=== PATIENT | male | born 1985 | race Caucasian/White ===

== ENCOUNTER → 2018-04-13 14:24 | Outpatient (CLI) | payer OTHER, SELFPAY ==
--- NOTE | 2018-04-13 | DI.CT.S_ITS ---
PROCEDURE: CT ABDOMEN PELVIS WO/W CON INDICATIONS: FLANK PAIN TECHNIQUE: After the administration of oral contrast, 5 mm thick sections acquired from the diaphragms to the iliac crests. After the administration of intravenous contrast, 5 mm thick sections acquired from the diaphragms to the symphysis. 5 mm thick coronal and sagittal reformats were acquired. For radiation dose reduction, the following was used: automated exposure control, adjustment of mA and/or kV according to patient size. COMPARISON: [facility], CT, ABD/PELVIS W/CON (PNL), 03/15/2013, 13:34. FINDINGS: Image quality: Diagnostic. ABDOMEN: Genitourinary structures: The kidneys are normal in size. No focal renal lesions are evident. There is no hydronephrosis or hydroureter. Symmetric enhancement of both kidneys is present. There may be an extrarenal pelvis on the right. Mild tortuosity of the proximal left ureter is incidentally noted. No ureteral calculi are identified. The right ureter is slightly larger than the left. There is mild prominence of the right vesicoureteral junction compared to the left. No calculi are evident. No bladder calculi are seen. Mild bladder wall thickening appears to be present. The prostate is not enlarged. The patient has had prior vasectomy. The testicles do not appear to be enlarged, but are not adequately evaluated. Lung bases: Lung bases are clear. Heart size is normal. Other solid organs: The liver, adrenals, spleen, and pancreas are within normal limits. The gallbladder is decompressed and not well evaluated. Bowel and peritoneum: There is a small hiatal hernia. Otherwise, the stomach and duodenum are unremarkable. Small bowel loops are nondilated. The appendix is well-visualized and normal without surrounding inflammation. Moderate residual stool is identified throughout the colon. There is no free fluid, loculated fluid collection or free air. Nodes and vessels: No retroperitoneal or mesenteric adenopathy by size criteria. Aorta and inferior vena are normal in caliber. Miscellaneous: No ventral hernias. PELVIS: Soft tissues: No inguinal hernias or adenopathy. No free fluid or loculated fluid collection is identified Bones: No suspicious bony lesions. No vertebral body compression fractures. IMPRESSION: 1. No obstructing or nonobstructing renal or ureteral calculi are evident. 2. Mild thickening of the wall of the urinary bladder may be related to cystitis. Please correlate clinically. 3. Slight asymmetric prominence of the right ureter with associated soft tissue prominence of the vesicoureteral junction on the right is nonspecific and may be within normal limits for this patient. The possibility of either a radiolucent calculus at the vesicoureteral junction or more focally prominent inflammation of the vesicoureteral junction on the right from an infectious process is difficult to exclude and clinical correlation is recommended. 4. Normal appendix. 5. Mild colonic constipation. Dictated by: Joe Nieves M.D. on 04/13/2018 at 15:37 Approved by: Joe Nieves M.D. on 04/13/2018 at 15:46
== END ==
PROVIDERS: Visit Provider Family Medicine
DX: R10.9 Unspecified abdominal pain (principal); K59.00 Constipation, unspecified; N50.82 Scrotal pain; N50.89 Other specified disorders of the male genital organs
CPT/HCPCS: 74178; Q9967

== ENCOUNTER → 2018-04-14 14:18 | Outpatient (CLI) | payer OTHER, SELFPAY ==
--- NOTE | 2018-04-14 | DI.US.S_ITS ---
PROCEDURE: US SCROTUM INDICATIONS: TORSION TECHNIQUE: Real-time scanning was performed of the scrotum and testicles, with image documentation. Color and pulse Doppler interrogation was performed of both testicles. COMPARISON: None. FINDINGS: Right: Testicle is normal in size at 4.4 x 2.8 x 3.3 cm, and homogenous in echotexture. Epididymis is normal in overall size and morphology. Increased vascularity within right epididymis is seen. No hydrocele or varicoceles. Overlying scrotal skin is normal in thickness. Left: Testicle is normal in size at 4.4 x 2.6 x 2.9 cm, and homogeneous in echotexture. Epididymis is normal in overall size and morphology. No hydrocele or varicoceles. Overlying scrotal skin is normal in thickness. Doppler: Color and pulse Doppler demonstrate normal and symmetric arterial flow in both testicles. Normal resistive indexes seen in bilateral testes. IMPRESSION: 1. Normal appearing bilateral testes. No evidence of testicular torsion. No discrete testicular lesion. 2. Increased vascularity within the right epididymis suggestive of epididymitis. No gross abnormality is seen in left epididymis. Dictated by: Familia Fatima M.D. on 04/14/2018 at 16:06 Approved by: Familia Fatima M.D. on 04/14/2018 at 16:14
== END ==
PROVIDERS: PCP Family Medicine; Visit Provider Family Medicine
DX: N44.00 Torsion of testis, unspecified (principal)
CPT/HCPCS: 76870

== ENCOUNTER 2019-12-01 15:06 | Emergency (ER) | payer OTHER, SELFPAY ==
[2019-12-01 15:17] VITALS: BP 132/65; PULSE 75; RESP 17; TEMP 36.8; O2SAT 98; BMI 28.7
[2019-12-01] MEDS: PROPARACAINE 0.5% OPHTH SOL 1 DROPS EYE-RIGHT (15:46)
--- NOTE | 2019-12-01 16:41 | ED_ITS ---
HPI - Eye Problem <SHELDON Carranza - Last Filed: 12/01/19 16:54> General Chief complaint: Eye Problems Stated complaint: Something in his right eye Time Seen by Provider: 12/01/19 15:45 Source: patient Mode of arrival: Ambulatory Limitations: no limitations History of Present Illness HPI Narrative: This is a 34-year-old male who presents to ED with right eye discomfort and foreign body sensation. Patient reports he was wearing a hat and fell something dropped from a hat into right eye. His grandmother saw a small debris for few seconds near the right eye before. Patient states he rubbed right eye to remove the debris. He has been having eye pain last couple of hours and had irrigate his eye with water with hose, shower but without much relief. Patient denies changes in vision. Last tetanus immunization possibly updated in 4 years. Patient reports pain is mostly in 1 and 3 o'clock in right eye. Patient offered Tylenol and Motrin while in ED which he declined. Patient does not wear contact lenses or glasses. Related Data Allergies Allergy/AdvReac Type Severity Reaction Status Date / Time No Known Drug Allergies Allergy Verified 12/01/19 15:20 Review of Systems <SHELDON Carranza - Last Filed: 12/01/19 16:54> Review of Systems Narrative: General: Denies fever, chills, fatigue, malaise, sweats. HEENT: See HPI Respiratory: Denies dyspnea, cough, wheezing, hemoptysis, sputum. Cardiovascular: Denies chest pain, palpitations, orthopnea, edema. Gastrointestinal: Denies nausea, vomiting, abdominal pain, diarrhea, constipation, melena. : Denies dysuria, frequency, incontinence, hematuria, urinary retention. Musculoskeletal: Denies weakness, joint pain or bony pain. Skin: Denies rash, skin lesions, or other. Neurologic: Denies weakness, headache, numbness, change in speech, confusion, seizures, incoordination. Psychiatric: No concerning psychosocial issues. 12-point review of systems is negative except for those stated above. Patient History <SHELDON Carranza - Last Filed: 12/01/19 16:54> Medical History No significant past medical history (Acute) Surgical History No pertinent past surgical history (Acute) Social History Smoking Status: Never smoker Smoking Status: Never smoker alcohol intake frequency: holidays/special occasions only Substance Use Type: does not use Exam <SHELDON Carranza - Last Filed: 12/01/19 16:54> Narrative Exam Narrative: General appearance: well developed, well nourished, in no acute distress. Head: normocephalic, atraumatic, no scalp lesions, non-tender. ENT: Hearing grossly intact. Nose without bleeding, purulent discharge. Facial sinuses nontender to palpate. Mucous membrane moist, no mucosal lesion. Throat without erythema, tonsillar hypertrophy or exudate. Uvula in midline, airway patent. Neck/Thyroid: neck supple, full range of motion, no visible masses or meningeal signs. No JVD, non-tender without lymphadenopathy. Skin: no suspicious rashes, lesions over visible areas. Warm and dry and appropriate color for ethnicity. Heart: no clubbing, no cyanosis, no edema. S1 and S2 normal. RRR w/o murmurs, clicks, or bruits. Lungs: Breathing even and unlabored. No stridor. No accessory muscles used. Able to speak in full sentences. Chest: normal shape and expansion. Abdomen: non-obese, non-distended. Neurologic: alert and oriented. Cognitive exam, W[employer] and PNS grossly intact on informal exam. Psych: good eye contact, normal affect. Initial Vital Signs Initial Vital Signs: Vital Signs Temperature 98.2 F 12/01/19 15:17 Pulse Rate 75 12/01/19 15:17 Respiratory Rate 17 12/01/19 15:17 Blood Pressure 132/65 12/01/19 15:17 Pulse Oximetry 98 12/01/19 15:17 Eyes Visual An: normal visual an by confrontation Alignment and Position: alignment normal Periorbital: periorbital findings normal Eyelids: eyelid abnormality right upper eyelid swelling Conjunctivae: conjunctival abnormality right conjunctival injection; without discharge Sclera: sclerae normal (No foreign body, hemorrhage, exudate appreciated.) Cornea: corneas abnormal on the right fluorescein used; without ulcerations and fluorescein used (Increased fluorescein reuptake at 1 and 5 o clock. ) Pupils: PERRL and normal by confrontation EOM: EOM intact bilaterally Direct ophthalmoscopy: normal light reflex <Jay Koo MD - Last Filed: 12/02/19 07:48> Initial Vital Signs Initial Vital Signs: Vital Signs Temperature 98.2 F 12/01/19 15:17 Pulse Rate 75 12/01/19 15:17 Respiratory Rate 17 12/01/19 15:17 Blood Pressure 132/65 12/01/19 15:17 Pulse Oximetry 98 12/01/19 15:17 Scores <[facility] - Last Filed: 12/01/19 16:54> GCS [place] coma scale eye opening: Spontaneous [place] coma scale verbal response: Orientated [place] coma scale motor response: Obey commands Nathanael coma scale total score: 15 Course <[facility] - Last Filed: 12/01/19 16:54> Orders Ordered: Discontinued Medications Erythromycin (Erythromycin Ophth Oint) 1 applic EYE-RIGHT NOW ONE Stop: 12/01/19 16:41 Last Admin: 12/01/19 16:46 Dose: 1 applic Documented by: MMCFARL Fluorescein Sodium (Ful-Renetta) 1 mg EYE-RIGHT NOW ONE Stop: 12/01/19 15:55 Last Admin: 12/01/19 16:46 Dose: 1 mg Documented by: MMCFARL Proparacaine HCl (Parcaine 0.5% Ophth Gina) 1 drops EYE-RIGHT NOW ONE Stop: 12/01/19 15:43 Last Admin: 12/01/19 15:46 Dose: 1 drop Documented by: KRISTAN Vital Signs Vital signs: Vital Signs - 8 hr 12/01/19 15:17 Temperature 98.2 F Pulse Rate 75 Respiratory Rate 17 Blood Pressure 132/65 Pulse Oximetry 98 <Jay Koo MD - Last Filed: 12/02/19 07:48> Orders Ordered: Discontinued Medications Erythromycin (Erythromycin Ophth Oint) 1 applic EYE-RIGHT NOW ONE Stop: 12/01/19 16:41 Last Admin: 12/01/19 16:46 Dose: 1 applic Documented by: MMCFARL Fluorescein Sodium (Ful-Renetta) 1 mg EYE-RIGHT NOW ONE Stop: 12/01/19 15:55 Last Admin: 12/01/19 16:46 Dose: 1 mg Documented by: MMCFARL Proparacaine HCl (Parcaine 0.5% Ophth Gina) 1 drops EYE-RIGHT NOW ONE Stop: 12/01/19 15:43 Last Admin: 12/01/19 15:46 Dose: 1 drop Documented by: KRISTAN Vital Signs Vital signs: Vital Signs - 8 hr 12/01/19 15:17 Temperature 98.2 F Pulse Rate 75 Respiratory Rate 17 Blood Pressure 132/65 Pulse Oximetry 98 [facility] - Eye Problem <Isaiah SHELDON Johnson - Last Filed: 12/01/19 16:54> Differential Diagnosis Differential diagnosis: Likely corneal abrasion, corneal ulcer and other (Foreign body) Medical Records Attestation: I reviewed the patient's medical records. [facility] Narrative Medical decision making narrative: Unable locate foreign body in right eye, below upper or lower lid. Mild increase in fluorescein uptake at 1 and 5 o'clock. Affected eye has been irrigated with normal saline and treated with erythromycin ointment and discharged to home with the rest of the medication. Advised to use erythromycin 1/2 inch 4 times a day and to follow-up with ophthalmology in a couple of days. Visual acuity bilaterally 20/25. Patient does not use contact lens. Return precautions were discussed with patient and patient verbalized the understanding and in agreement with the treatment plan. IOP 12 per tonometry. Discharge Plan Departure Patient Disposition: Home Clinical Impression: Corneal abrasion Qualifiers: Encounter type: initial encounter Laterality: right Qualified Code(s): S05.01XA - Injury of conjunctiva and corneal abrasion without foreign body, right eye, initial encounter Discharge Date/Time: 12/01/19 16:45 Instructions: DI for Corneal Abrasion Activity Restrictions/Additional Instructions: You have been diagnosed with [right cornea abrasion and foreign body sensation. Unable to locate foreign body. You were treated with erythromycin antibiotic ointment for eye. Affected eye has been irrigated in ED.]. What to do: *Take your medications as directed. Please use erythromycin eye ointment half an inch on affected eye up to 4 times a day. You can take [id number] Tylenol and or Motrin as needed for discomfort. Cool pack on affected eye for discomfort. *Follow up with your primary care provider in 2-3 days, call for an appointment. Please follow-up with ophthalmology. Let them know you were seen in the ED and that we asked you to be seen in follow up. *Return to ED if you have any new, worsening, or concerning symptoms, such as [decreased vision, pain, breathing difficulty, unable to tolerate fluids, or any acute concerns]. Referrals: Xavi Allen MD [Physician] - Claudy Bowman MD [Primary Care Provider] -
[2019-12-01] MEDS: ERYTHROMYCIN OPHTH 1 GM OINT 1 APPLIC EYE-RIGHT (16:46)
[2019-12-01] MEDS: FLUORESCEIN 1 MG STRIP EYE-RIGHT (16:46)
== END 2019-12-01 16:45 | disposition home or self-care (01) ==
PROVIDERS: Emergency Provider Nurse Practitioner Family; PCP Family Medicine
DX: S05.01XA Injury of conjunctiva and corneal abrasion without foreign body, right eye, initial encounter (principal)
CPT/HCPCS: 99282

== ENCOUNTER → 2020-02-29 09:20 | Outpatient (CLI) | payer OTHER, SELFPAY ==
--- NOTE | 2020-02-29 | DI.RAD.S_ITS ---
PROCEDURE: XR FOOT LT MIN 3V INDICATIONS: LT FOOT PAIN POST INJURY TECHNIQUE: 3 views of the foot were acquired. COMPARISON: None. FINDINGS: Bones: No fracture. Mild inter phalangeal joint degeneration and mild 1st MTP osteoarthritis. Prominent spurring at the tibiotalar joint, and a chronic corticated appearing ossicle projects adjacent to the medial malleolus. Soft tissues: No tibiotalar joint effusion. Achilles tendon appears normal. IMPRESSION: No fracture. If the patient's symptoms do not improve recommend followup radiographs in 10 days to assess for healing sclerosis/occult injury. Chronic degenerative changes as above Dictated by: Mook Baxter M.D. on 02/29/2020 at 11:13 Approved by: Mook Baxter M.D. on 02/29/2020 at 11:15
== END ==
PROVIDERS: PCP Family Medicine; Referring Provider Family Medicine; Visit Provider Family Medicine
DX: S99.922A Unspecified injury of left foot, initial encounter (principal); M79.672 Pain in left foot; M19.072 Primary osteoarthritis, left ankle and foot; X58.XXXA Exposure to other specified factors, initial encounter
CPT/HCPCS: 73630

== ENCOUNTER 2020-10-30 15:29 | Emergency (ER) | payer OTHER, SELFPAY ==
[2020-10-30 15:48] VITALS: BP 136/73; PULSE 84; RESP 18; TEMP 36.9; O2SAT 99; BMI 28.7
--- NOTE | 2020-10-30 15:55 | DI.RAD.S_ITS ---
PROCEDURE: XR HAND LT MIN 3V INDICATIONS: smashed hand between two rocks TECHNIQUE: 3 views of the hand(s) acquired. COMPARISON: [facility], , HAND 3V RIGHT, 01/09/2010, 13:43. FINDINGS: Bones: No fractures or dislocations. Carpal bones are normally aligned. No suspicious bony lesions. Soft tissues: No suspicious soft tissue calcifications. IMPRESSION: Normal left hand Dictated by: Bill Zuniga M.D. on 10/30/2020 at 16:12 Approved by: Bill Zuniga M.D. on 10/30/2020 at 16:13
--- NOTE | 2020-10-30 18:03 | ED_ITS ---
HPI - Extremity Injury (Upper) General Chief Complaint: Extremity Injury, Upper Stated Complaint: smashed left hand Time Seen by Provider: 10/30/20 18:03 Source: patient Mode of arrival: Ambulatory Limitations: no limitations History of Present Illness HPI narrative: 34-year-old gentleman with no significant medical history was moving rocks in his yd thought he had positioned his hands appropriately however as the rocks were shifted his left hand was caught between 2 large rocks and crushed through the midportion of his hand. It immediately went numb in an ulnar distribution. He had increased swelling and did have the for-thought to remove his rings as soon as possible. There is no significant abrasions or obvious hematomas. He comes to the ER for further evaluation Related Data Allergies Allergy/AdvReac Type Severity Reaction Status Date / Time shrimp Allergy Severe Anaphylaxis Verified 10/30/20 15:48 Review of Systems Review of Systems Narrative: Remainder of complete review of systems is otherwise unremarkable except for that included in the HPI. Patient History Medical History No significant past medical history Surgical History No pertinent past surgical history Social History Smoking Status: Never smoker Smoking Status: Never smoker alcohol intake frequency: holidays/special occasions only Substance Use Type: does not use Exam Narrative Exam Narrative: General: Alert appropriate in no acute distress Respiratory: Able to speak in full sentences, no obvious respiratory distress Skin: No obvious rashes, warm and dry Neurologic: Grossly intact no obvious asymmetries or abnormalities Psych: appropriate insight and affect, cooperative Extremity: Left hand is examined. The hand itself is swollen without signif icant abrasion or contusion. He is tender on the thenar eminence and with closing his fist however does have full range of motion at the wrist and the fingers with full sensation to all fingers at this point. Initial Vital Signs Initial Vital Signs: Vital Signs Temperature 98.5 F 10/30/20 15:48 Pulse Rate 84 10/30/20 15:48 Respiratory Rate 18 10/30/20 15:48 Blood Pressure 136/73 10/30/20 15:48 Pulse Oximetry 99 10/30/20 15:48 Course Orders Ordered: ED Orders 10/30/20 15:55 XR hand LT min 3V Stat Vital Signs Vital signs: Vital Signs - 8 hr 10/30/20 18:50 Pulse Rate 62 Respiratory Rate 18 Blood Pressure 131/88 Pulse Oximetry 100 [facility] - Extremity Injury (Upper) Imaging Data X-ray hand: Radiologist's Impression: FINDINGS: Bones: No fractures or dislocations. Carpal bones are normally aligned. No suspicious bony lesions. Soft tissues: No suspicious soft tissue calcifications. IMPRESSION: Normal left hand Dictated by: Bill Zuniga M.D. on 10/30/2020 at 16:12 [facility] Narrative Medical decision making narrative: 34-year-old gentleman with a significant hand contusion without bony injury or traumatic crush injury. Reviewed anticipated course of resolution as well as expected swelling. Questions were answered and patient is safe for home discharge Discharge Plan Departure Patient Disposition: Home Clinical Impression: Contusion of hand Qualifiers: Encounter type: initial encounter Laterality: left Qualified Code(s): S60.222A - Contusion of left hand, initial encounter Instructions: DI for Contusion Activity Restrictions/Additional Instructions: Thank you for coming in today Your injury sounds like it is going to be painful for another day or two. Fortunately you did not break any bones. Do expect more swelling. It is okay to use the hand as you normally would and allow pain to restrict your activity (if it hurts, do not do it). Using 400 mg of ibuprofen (2 [id number] pills) and 1 Tylenol every 6 hours can be very helpful in controlling pain. If you notice worsening symptoms, developed persistent numbness please feel free to return to the ER for further evaluation. Referrals: Claudy Bowman MD [Primary Care Provider] -
[2020-10-30 18:50] VITALS: BP 131/88; PULSE 62; RESP 18; O2SAT 100
== END 2020-10-30 18:52 | disposition home or self-care (01) ==
PROVIDERS: Emergency Provider Emergency Medicine; PCP Family Medicine
DX: S60.222A Contusion of left hand, initial encounter (principal); W23.0XXA Caught, crushed, jammed, or pinched between moving objects, initial encounter
CPT/HCPCS: 73130; 99283

== ENCOUNTER → 2022-02-05 12:29 | Outpatient (CLI) | payer OTHER, SELFPAY ==
--- NOTE | 2022-02-05 | DI.CT.S_ITS ---
PROCEDURE: CT SINUS SCREEN WO CON INDICATIONS: Chronic pansinusitis TECHNIQUE: Noncontrast 3.0 mm axial images acquired from the frontal sinuses to the mid-sella, with coronal and sagittal reformats. For radiation dose reduction, the following was used: automated exposure control, adjustment of mA and/or kV according to patient size. COMPARISON: None. FINDINGS: Image quality: Excellent. Maxillary Sinuses: No bony remodeling or destruction. Sinuses are clear. Ethmoid Air Cells: No bony remodeling or destruction. Sinuses are clear. Sphenoid Sinuses: No bony remodeling or destruction. Sinuses are clear. Frontal Sinuses: No bony remodeling or destruction. Sinuses are clear. Ostiomeatal Complexes: Ostiomeatal complexes are patent. No Meagan cells. Miscellaneous: Moderate nasal septal deviation to the left with spurring which creates a mucosal contact point (series 4, image 23) with the inferior nasal turbinate mucosa. No jack bullosa. IMPRESSION: No findings of acute or chronic sinusitis. Moderate nasal septal deviation and spurring. Dictated by: Lewis Leger M.D. on 02/05/2022 at 13:36 Approved by: Lewis Leger M.D. on 02/05/2022 at 13:38
== END ==
PROVIDERS: PCP Family Medicine; Referring Provider Otolaryngology; Visit Provider Otolaryngology
DX: J32.4 Chronic pansinusitis (principal); J34.2 Deviated nasal septum; R43.8 Other disturbances of smell and taste
CPT/HCPCS: 70486

== ENCOUNTER → 2022-06-08 13:25 | Outpatient (ROUT) | payer OTHER, SELFPAY ==
[2022-06-08 14:56] LABS: COVID-19 CEPHEID PCR (VTM/NP) Negative (Negative)
== END ==
PROVIDERS: Visit Provider Otolaryngology
DX: Z20.822 Contact with and (suspected) exposure to COVID-19 (principal)
CPT/HCPCS: U0003; U0005

== ENCOUNTER 2022-06-10 10:14 | Day surgery (SDC) | payer OTHER, SELFPAY ==
[2022-06-09 11:43] VITALS: BMI 29.2
[2022-06-10 10:50] VITALS: BP 130/85; PULSE 75; RESP 16; TEMP 36.6; O2SAT 99; BMI 29.2
[2022-06-10] MEDS: LACTATED RINGERS 1,000 ML 42 ML IV ×2 (11:07→13:09)
[2022-06-10] MEDS: OXYMETAZOLINE NASAL SPRAY 15 ML 2 SPRAYS NASAL (11:12)
--- NOTE | 2022-06-10 11:24 | PM.PREOP ---
Pre-operative Note Interval Note History & Physical reviewed/Exam performed by Physician: Yes Changes to H&P: No
--- NOTE | 2022-06-10 11:24 | PM.HP.1 ---
History of Present Illness History of Present Illness Time Patient Seen: 11:24 Chief complaint: SEPTOPLASTY & TURBINATE REDUCTION Narrative: 36-year-old male last seen in clinic 03/25/2022 with known right greater than left nasal obstruction, septal deviation, and turbinate hypertrophy, presents for septoplasty and turbinate reduction under general anesthesia. No interval health changes although the budesonide nasal irrigations seem to plug his ear. Patient History Medical History Allergic rhinitis Anxiety Hx of reduction of closed fracture Hyposmia Nasal obstruction Nasal septal deviation Nasal turbinate hypertrophy Tinnitus of both ears Surgical History History of surgery on wrist (2008) Hx of hernia repair (2005) Hx of knee surgery (2006) Family & Social History Social History: household members spouse Tobacco & Substance use: Smoking Status Never smoker alcohol intake current alcohol intake frequency holiday/special occasion Substance Use Type does not use Meds Home Medications and Allergies Home Medications Medication Instructions Recorded Confirmed Type sertraline 100 mg tablet (Zoloft) 100 mg PO 06/09/22 History Allergies Allergy/AdvReac Type Severity Reaction Status Date / Time shrimp Allergy Severe Anaphylaxis Verified 06/10/22 10:40 Review of Systems Review of Systems Narrative: Negative except as listed in the HPI Exam Vital Signs (past 8 hours): - 06/10/22 10:50 Temperature 97.9 F Pulse Rate 75 Respiratory Rate 16 Blood Pressure 130/85 Pulse Oximetry 99 Oxygen Delivery Method Room Air Oxygen Delivery Method Room Air Narrative Exam Narrative: Well-developed well-nourished male, stocky, no acute distress. Heart regular rate and rhythm without murmur, lungs clear to auscultation bilaterally Assessment & Plan Assessment & Plan narrative: Assessment: Nasal airway obstruction, septal deviation, inferior turbinate hypertrophy, hyposmia Plan: Following discussion of the material risks benefits complications and alternatives, he elected to proceed with septoplasty and bilateral inferior turbinate reduction as outpatient. Time Spent With Patient Critical Care time: I spent a total of [] minutes of critical care time on this patient's care today; this time is exclusive of procedural time.
--- NOTE | 2022-06-10 11:26 | PM.OP.1 ---
Operative Date/Time/Diagnoses Date of procedure: 06/10/22 Time of procedure: 14:00 Pre-op diagnosis: Nasal airway obstruction, septal deviation, inferior turbinate hypertrophy, hyposmia Post-op diagnosis: same Procedure & Clinicians Procedure: 1. Septoplasty 2. Bilateral inferior turbinate reduction via intramural cautery Same procedure as scheduled: Yes Indications: 36-year-old male with the above diagnoses incompletely managed with medical therapy presents for the above procedures. Following discussion of the material risks benefits complications and alternatives, he elected to proceed. Surgeon: Maxx Garcia Click Yes if Unassisted: Yes Anesthesia Type: General and Local Operative Notes Findings: 1-2+ right anterior septal deviation, left anterior low spur, thick cartilage and bone. Low perforation of LEFT flap only, right entirely intact. bilateral moderate inferior turbinate hypertrophy Estimated Blood Loss (mL): 20 Procedure in detail: Following identification and confirmation of consent as well as preoperative Afrin nasal spray, the patient was brought to the operating room suite and placed in the supine position. General endotracheal anesthesia was administered. I infiltrated the septum widely bilaterally with 1% lidocaine 1 100,000 epinephrine followed by temporary packing with cotton with Afrin and 4% lidocaine. Following sterile prep and drape, the packing was removed and I performed a right catarino-transfixion incision, elevated the right mucoperichondrial and mucoperiosteal flap. I disarticulated near the bony/cartilaginous junction and elevated the left mucoperiosteal flap. Deviated portions of the perpendicular plate of the ethmoid and vomer were resected. The residual quadrilateral cartilage was further straightened by trimming it inferiorly as well as reducing the maxillary crest. A 2 mm strip of cartilage paralleling the residual 1 cm dorsal and caudal strut was resected to further straighten the quadrilateral cartilage. The hemitransfixion incision was closed with interrupted 5 0 chromic followed by a running 4 0 plain gut mattress suture to reapproximate the septal flaps. At case completion, 20/1000th of an inch silastic splints were placed bilaterally, sutured anteriorly with a single 4 0 nylon. The head of each inferior turbinate had been previously infiltrated with additional local anesthetic and a 25 gauge spinal needle was used to impale the length of the turbinate, with cautery on a setting of 15 activated on slow withdrawal over 2 passes each side. The procedure completed, sponge and needle counts were correct and the patient was extubated in the operating room and taken to recovery room in stable condition without known complication. Postoperative care: Nasal saline every hour while awake, Vaseline or Polysporin to the nostrils at all times, begin irrigations t.i.d. beginning pod 1. Humidifier at the bedside blowing on the face. Tylenol alternating with Advil for pain control, oxycodone if necessary for breakthrough pain. Complications: none Post-operative Condition: stable Disposition: same day surgery Plan for aftercare: Nasal saline every hour while awake, begin irrigations t.i.d. tomorrow if desired. Polysporin to the nostrils at all times, Tylenol alternating with Advil for pain control, oxycodone for breakthrough pain. Elevate head of bed, no nose blowing, no straining for 2 weeks. Ice directly under the nose on the upper lip has tolerated 24-48 hours at a minimum. Follow-up in 1 week for nasal splint removal.
--- NOTE | 2022-06-10 13:05 | SUR.OPER ---
Supine on padded OR bed, head on pillow, arms padded and tucked at sides, legs uncrossed, safety belt at thigh, tape over blanket over lower legs .
[2022-06-10] MEDS: LIDOCAINE 4% SOLN 50 ML 20 ML TOP (13:11)
[2022-06-10] MEDS: LIDOCAINE 1% W/EPI 20 ML INJ (13:12)
[2022-06-10 14:20] VITALS: BP 137/85; PULSE 90; RESP 18; TEMP 36.9; O2SAT 97
[2022-06-10 14:25] VITALS: BP 129/86; PULSE 84; RESP 18; O2SAT 95
[2022-06-10 14:37] VITALS: BP 128/84; PULSE 93; RESP 12; O2SAT 96
[2022-06-10 14:46] VITALS: BP 139/92; PULSE 87; RESP 16; O2SAT 99
[2022-06-10] MEDS: OXYCODONE/ACETAMINOPHEN 5/325 TABLET 1 TAB PO (14:50)
[2022-06-10 14:57] VITALS: BP 128/83; PULSE 76; RESP 16; TEMP 36.3; O2SAT 95
== END 2022-06-10 15:45 | disposition home or self-care (01) ==
PROVIDERS: PCP Family Medicine; Referring Provider Otolaryngology; Visit Provider Otolaryngology
PROC: (CPT 30520; principal; 2022-06-10 11:30)
DX: J34.2 Deviated nasal septum (principal); J34.89 Other specified disorders of nose and nasal sinuses; R43.8 Other disturbances of smell and taste; J34.3 Hypertrophy of nasal turbinates; J30.9 Allergic rhinitis, unspecified; H93.13 Tinnitus, bilateral; H93.293 Other abnormal auditory perceptions, bilateral
CPT/HCPCS: 30520; 30802; A9270; J1100; J2250; J2405; J2704; J3010